=== PATIENT | male | born 1965 | race Caucasian/White ===

== ENCOUNTER → 2025-04-04 | Day surgery (SDC) | payer MEDICARE, BC ==
[~2025-04-04] MED LIST: ACETAMINOPHEN 1000 MG/100 ML 100 ML IV ONE; DEXAMETHASONE SOD PHOS INJ 4 MG/ML SDV ONE; EPHEDRINE SULFATE INJ 50 MG/ML VIAL ONE; FENTANYL CITRATE/PF 100MCG/2 ML INJ ONE; IBUPROFEN200 MG PO; LIDOCAINE HCL 2% LOCAL INJ 5 ML SDV VIAL INJ ONE; NEURONTIN400 MG PO; ONDANSETRON HCL INJ 2MG/ML 2ML 2 MG/ML VIAL ONE; PHENYLEPHRINE HCL 1% 10 MG/ML VIAL ONE; PROPOFOL IV EMULSION 10 MG/ML 20 ML VIAL ONE; SEVOFLURANE INHAL SOLN 250 ML PEN BTL ONE; SODIUM CHLORIDE 0.9% INJ 10 ML VIAL ONE; TIZANIDINE HCL4 M1 PO; TRAZODONE HCL50 MG PO; ULTRAM 50MG50 MG PO
[2025-04-04 07:23] LABS: BASOPHILS % 0.5 % (0.0-1.0); EOSINOPHILS % 2.5 % (0.0-6.0); LYMPHOCYTES % 43.2 % (18.0-39.1); MONOCYTES % 6.9 % (4.4-11.3); NEUTROPHILS % 46.8 % (38.7-80.0); RED CELL DISTRIBUTION WIDTH 12.6 % (11.7-14.4)
[2025-04-04 07:53] LABS: EST GLOMERULAR FILTRATION RATE 84.0 ML/MIN (>=60)
[2025-04-04] MEDS: PIPERACILLIN/TAZOBACTAM 3.375 GM VIAL ONE (08:23)
[2025-04-04] MEDS: Vancomycin IV 1 GM VIAL ONE (08:24)
[2025-04-04] MEDS: SODIUM CHLORIDE 0.9% 250ML 250 ML ONE (08:26)
[2025-04-04] MEDS: SODIUM CHLORIDE 0.9% 1000ML 1,000 ML ONE (08:32)
[2025-04-04 10:43] VITALS: TEMP 98
[2025-04-04] MEDS: PHENAZOPYRIDINE HCL 100 MG TAB ONE (11:10)
[2025-04-04 11:45] VITALS: BP 149/89; PULSE 95; RESP 16; O2SAT 98
== END | disposition home or self-care (01) ==
LOC: OR 06:47
PROVIDERS: ATTEND Urology
DX: N13.1 Hydronephrosis with ureteral stricture, not elsewhere classified (principal); N20.2 Calculus of kidney with calculus of ureter; N40.1 Benign prostatic hyperplasia with lower urinary tract symptoms; R33.9 Retention of urine, unspecified; R35.1 Nocturia; I69.398 Other sequelae of cerebral infarction; N31.8 Other neuromuscular dysfunction of bladder; I10 Essential (primary) hypertension; M19.90 Unspecified osteoarthritis, unspecified site; Z93.59 Other cystostomy status; Z01.810 Encounter for preprocedural cardiovascular examination; Z01.812 Encounter for preprocedural laboratory examination; Z88.5 Allergy status to narcotic agent; Z79.1 Long term (current) use of non-steroidal anti-inflammatories (NSAID); Z79.2 Long term (current) use of antibiotics; Z87.440 Personal history of urinary (tract) infections; Z80.42 Family history of malignant neoplasm of prostate; Z79.891 Long term (current) use of opiate analgesic; Z79.899 Other long term (current) drug therapy
CPT/HCPCS: 36415; 51705; 52332; 52352; 74018; 74420; 80053; 83970; 84550; 85025; 87086; 87186; 88300; 93005; C1758; C1769; C2617; J0131; J1100; J2003; J2371; J2405; J2543; J2704; J3010; J3373; J7030; J7050